=== PATIENT | female | born 1960 | race Caucasian/White ===

== ENCOUNTER 2016-11-11 06:02 | Day surgery (SDC) | payer OTHER ==
[~2016-11-11 06:02] MED LIST: Buffered Lidocaine 0.9% SYRIN* 5 ML/SYR SYRINGE INTRADERM ONE; Buffered Lidocaine 0.9% SYRIN* 5 ML/SYR SYRINGE ONE; Dexamethasone IV* 4 MG/ML 1 ML (4 MG) IV SLOW PU ONE; Dexamethasone IV* 4 MG/ML 1 ML (4 MG) ONE; Famotidine IV* 10 MG/ML 2 ML (20 mg) IV ONE; Famotidine IV* 10 MG/ML 2 ML (20 mg) ONE; ceFAZolin 2 GM PREMIX(*) 2 GM/50 ML BAG IVPB ONE
[2016-11-11] MEDS ORDERED: Bupivacaine 0.5% SDV PF* 30 ML VIAL ONE (07:07)
[2016-11-11] MEDS ORDERED: Midazolam* 1 MG/ML 5 ML VIAL (5 MG) ONE (07:14)
[2016-11-11] MEDS ORDERED: Lidocaine 2% PF* 10 ML AMP ONE ×2 (07:20→07:42)
[2016-11-11] MEDS ORDERED: Ondansetron INJ* 2 MG/ML VIAL ONE (07:25)
[2016-11-11] MEDS ORDERED: fentaNYL* 50 MCG/ML 2 ML VIAL (100 MCG VIAL) ONE ×2 (07:25→07:33)
[2016-11-11] MEDS ORDERED: Propofol* 10 MG/ML 20 ML BTL IV PUSH ONE (07:25)
[2016-11-11] MEDS ORDERED: Ketorolac INJ* 30 MG/ML 1 ML VIAL ONE (07:25)
[2016-11-11 09:18] VITALS: BP 105/66
--- NOTE | 2016-11-12 07:15 | OP ---
DATE OF OPERATION: 11/11/16 - [facility] DATE OF : 58 SURGEON: Collin Sagastume MD LANDSCAPING CREW LEADER: Supriya Gr PA-C ANESTHESIOLOGIST: Beny Rojas MD ANESTHESIA: MAC PRE-OP DIAGNOSIS: Arthritis, right first metatarsophalangeal joint. POST-OP DIAGNOSIS: Arthritis, right first metatarsophalangeal joint. OPERATIVE PROCEDURE: Right first MTP joint fusion. DESCRIPTION OF PROCEDURE: The patient was taken to the operating room where longitudinal incision was made over the dorsum of the first MTP joint. We made a medial and lateral flap to allow visualization of the joint itself. There was a very large dorsal osteophyte that was removed with a small osteotome. We repaired the joint for arthrodesis using a 2.5 mm power fariha. We then pinned the joint in neutral position obliquely with a 28 mm 4.0 cannulated screw and then fashioned dorsal rigid wide plate of the F3 plate with locking and nonlocking screws. X-rays intraoperatively showed satisfactory position. We irrigated thoroughly, closing with 3-0 Vicryl, 4-0 nylon and a compression dressing applied. [id number]/[facility] [place] #: [id number] MTDD
--- NOTE | 2016-11-12 07:54 | RAD ---
INDICATION: Right foot fusion first metatarsal-phalangeal joint. COMPARISON: Correlation is made with prior x-ray study of the right foot from December 28, 2015. TECHNIQUE: 2.4 seconds of intermittent fluoroscopic guidance were provided and 2 spot films of the right forefoot were obtained in the operating room. FINDINGS: The films demonstrate surgical fusion of the first metatarsal-phalangeal joint. There is a metallic plate present along the dorsal aspect of the distal first metatarsal proximal phalanx transfixed with multiple screws and a single additional surgical screw spanning the first metatarsal-phalangeal joint. The bones are in normal alignment. IMPRESSION: INTRAOPERATIVE CONTROL FILMS. CPT II Codes: 6045F
== END 2016-11-11 09:45 | disposition home or self-care (01) ==
LOC: OR 06:02
PROVIDERS: ATTEND Orthopaedic Surgery
PROC: 0SGM0ZZ (ICD-10-PCS; principal; 2016-11-11 07:30)
DX: M19.071 Primary osteoarthritis, right ankle and foot (principal); M25.774 Osteophyte, right foot; Z88.8 Allergy status to other drugs, medicaments and biological substances; F17.210 Nicotine dependence, cigarettes, uncomplicated; F32.9 Major depressive disorder, single episode, unspecified; F90.9 Attention-deficit hyperactivity disorder, unspecified type; M54.9 Dorsalgia, unspecified; G89.29 Other chronic pain
CPT/HCPCS: 76000; C1713; C1776; J0690; J1100; J1885; J2001; J2250; J2405; J2704; J3010

== ENCOUNTER → 2017-04-23 11:18 | Day surgery (SDC) | payer OTHER ==
[~2017-04-23 11:18] MED LIST changes: -Buffered Lidocaine 0.9% SYRIN* 5 ML/SYR SYRINGE ONE; +Ketorolac INJ* 30 MG/ML 1 ML VIAL ONE; +Lidocaine 2% PF * 5 ML VIAL ONE; +Midazolam* 1 MG/ML 2 ML VIAL (2 MG) ONE; +Ondansetron INJ* 2 MG/ML VIAL IV PRN; +Ondansetron INJ* 2 MG/ML VIAL ONE; +Propofol* 10 MG/ML 20 ML BTL IV PUSH ONE; -ceFAZolin 2 GM PREMIX(*) 2 GM/50 ML BAG IVPB ONE; +fentaNYL* 50 MCG/ML 5 ML VIAL (250 MCG VIAL) ONE; +oxyCODONE/Acetamin 5/325 MG* TAB PO PRN
[2017-04-23 15:35] VITALS: BP 126/76
--- NOTE | 2017-04-24 05:18 | PRO ---
DATE: 04/23/17 - ENDO REFERRING PHYSICIAN: Dr. Bradford Ramirez * PROCEDURE: Colonoscopy to cecum under general anesthesia. INDICATION: This 57-year-old woman comes in for screening colonoscopy. She has no symptom referable to the GI tract currently, though is somewhat constipated. That is baseline. She is on chronic pain medicines through the pain clinic. Given her history of psychiatric disease, substance abuse, current opioid use, _ ____ elected to do this procedure under anesthesia. Informed consent was obtained with an opportunity for questions, special concerns, and a travel discussion. ENDOSCOPIST: Dr. Alvarez. ANESTHESIA: General anesthesia per Dr. Rojas. FINDINGS: She is a slender, generally healthy-appearing, middle-aged woman in no distress. Her abdomen is symmetric, slender without focal finding. Rectal is normal. Initial views show a fair prep, fair amount of particulate debris though not all that much fluid. Views were ultimately judged as good to excellent. The adult scope encountered rather a floppy left colon and redundant hypermobile flexures throughout. The cecum, ileocecal valve, and the right colon directly were normal. Attempts to enter the ileocecal valve encountered high intrinsic sphincter tone and there was no pressing need to persevere, so the ileum was not seen. Upon slow withdrawal, excellent segmental views were normal. Final views in the rectum including retroflexion showed small internal hemorrhoids. IMPRESSION: Normal colonoscopy to cecum - 10-year interval. [id number]/[facility] #: [id number] MTDD
== END | disposition home or self-care (01) ==
LOC: OR 11:18 → ENDO 11:18
PROVIDERS: ATTEND Internal Medicine Gastroenterology
DX: Z12.11 Encounter for screening for malignant neoplasm of colon (principal); K63.89 Other specified diseases of intestine; K64.8 Other hemorrhoids; G89.29 Other chronic pain; M54.9 Dorsalgia, unspecified; F11.90 Opioid use, unspecified, uncomplicated; F32.9 Major depressive disorder, single episode, unspecified; F17.210 Nicotine dependence, cigarettes, uncomplicated; F90.9 Attention-deficit hyperactivity disorder, unspecified type; Z88.8 Allergy status to other drugs, medicaments and biological substances; Z91.040 Latex allergy status; Z79.899 Other long term (current) drug therapy; Z79.891 Long term (current) use of opiate analgesic
CPT/HCPCS: J1100; J1885; J2250; J2405; J2704; J3010

== ENCOUNTER 2019-02-16 14:30 | Emergency (ER) | payer OTHER ==
[2019-02-16 15:21] LABS: ABS Basophils 0.1 10^3/ul (0-0.2); ABS Eosinophils 0.1 10^3/ul (0-0.6); ABS Lymphocytes 3.9 10^3/ul (1.0-4.8); ABS Monocytes 0.6 10^3/ul (0-0.8); ABS Neutrophils 3.9 10^3/ul (1.5-7.7); Eosinophil % 1.5 %; Hematocrit 42 % (35-47); Hemoglobin 14.1 g/dL (12.0-16.0); Lymphocyte % 45.9 %; Mean Corpuscular HGB Conc 34 g/dL (31-36); Mean Corpuscular Hemoglobin 32 pg (27-31); Mean Corpuscular Volume 95 fL (80-97); Mean Platelet Volume 6.7 fL (7.4-10.4); Nucleated Red Blood Cells % 0.1; Platelet Count 309 10^3/uL (150-450); Red Blood Count 4.41 10^6 /uL (3.70-4.87); Red Cell Distribution Width 14 % (10-15); White Blood Count 8.6 10^3/uL (3.5-10.8)
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
[2019-02-16 15:48] LABS: ALT 19 U/L (7-52); AST 25 U/L (13-39); Albumin 3.9 g/dL (3.2-5.2); Albumin/Globulin Ratio 1.4 (1-3); Alkaline Phosphatase 58 U/L (34-104); Anion Gap 7 mmol/L (2-11); BUN/Creatinine Ratio 16.7 (8-20); Blood Urea Nitrogen 16 mg/dL (6-24); CO2 Carbon Dioxide 23 mmol/L (22-32); Calcium 8.2 mg/dL (8.6-10.3); Chloride 111 mmol/L (101-111); EGFR Non-African American 59.5 (>60); Globulin 2.7 g/dL (2-4); Glucose 91 mg/dL (70-100); Sodium 141 mmol/L (135-145); Total Protein 6.6 g/dL (6.4-8.9)
[2019-02-16 16:10] LABS: Urine Benzodiazepine Screen None Detected (None Detect); Urine Opiates Screen Presumptive Positive (None Detect)
[2019-02-16 16:12] LABS: Acetaminophen < 15 mcg/mL; Alcohol 242 mg/dL (<10)
[2019-02-16 18:38] VITALS: BP 124/64
== END 2019-02-16 16:37 | disposition home or self-care (01) ==
LOC: ED 14:30
DX: T51.0X1A Toxic effect of ethanol, accidental (unintentional), initial encounter (principal); Y92.9 Unspecified place or not applicable; J45.909 Unspecified asthma, uncomplicated; F32.9 Major depressive disorder, single episode, unspecified; F17.210 Nicotine dependence, cigarettes, uncomplicated; Z98.51 Tubal ligation status; Z79.899 Other long term (current) drug therapy; Z88.8 Allergy status to other drugs, medicaments and biological substances; Z91.040 Latex allergy status
CPT/HCPCS: 36415; 80053; 80307; 80320; 80329; 85025; 99283; G0480

== ENCOUNTER 2019-03-30 17:11 | Emergency (ER) | payer OTHER ==
--- NOTE | 2019-03-30 17:47 | ED ---
Medical Screening - HPI Summary HPI Summary: Patient with history of heroin use 2 today with subsequent overdose and administration of Narcan by EMS reportedly admitted to regular thoughts of SI and was brought to the ED for further evaluation. Patient states history of depression, chronic pain and chronic SI, but states she is [employer] Orthodox, and has 2 daughters and would never act on it. Patient chronic pain treated by pain management. Patient is currently a [employer] patient, States she started snorting heroin 2 weeks ago for chronic pain and recreational purposes. Denies intentional overdose today. Denies any other substance abuse today. Denies fever, cough, sore throat, CP, SOB, N/V/D, abdominal pain, change in urine, change in BM. Medical history is degenerative disc disease, chronic back pain, arthritis. - History of Current Complaint Chief Complaint: EDMentalHealth Stated Complaint: 941 PER [employer] ENFORC[employer] Time Seen by Provider: 03/30/19 17:36 PMH/Surg Hx/FS Hx/Imm Hx Endocrine/Hematology History: Denies: Hx Diabetes, Hx Thyroid Disease Cardiovascular History: Denies: Hx Hypertension, Hx Pacemaker/ICD Respiratory History: Reports: Hx Asthma - PRN INHALERS mild case Denies: Hx Chronic Obstructive Pulmonary Disease (COPD) GI History: Reports: Hx Irritable Bowel - NO PROBLEMS SINCE STARTED TAKING ALIGN Denies: Hx Ulcer History: Denies: Hx Dialysis, Hx Renal Disease Musculoskeletal History: Reports: Hx Arthritis, Hx Back Problems, Hx Bursitis - RIGHT SHOULDER - has improved some Sensory History: Reports: Hx Contacts or Glasses - glasses Denies: Hx Hearing Aid Opthamlomology History: Reports: Hx Contacts or Glasses - glasses Neurological History: Reports: Hx Migraine - NONE SINCE AGE 14, 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 Psychiatric History: Reports: Hx Depression - ON MEDICATION FOR, Hx Substance Abuse, Other Psychiatric Issues/Disorders - alcoholism Denies: Hx Eating Disorder, Hx Panic Disorder - Cancer History Hx Chemotherapy: No Hx Radiation Therapy: No - Surgical History Surgery Procedure, Year, and Place: 4 back surgeries - discectomy 1995, L4 fusion 1996, L 3,4,5 fusion 06/2010, C 6 fusion 09/2010; tonsillectomy; rt foot surgery; tubal ligation; ; Hx Anesthesia Reactions: No Infectious Disease History: No Infectious Disease History: Denies: Hx Hepatitis, Hx Human Immunodeficiency Virus (HIV), Traveled Outside the [place] in Last 30 Days - Family History Known Family History: Positive: Non-Contributory - Social History Alcohol Use: None Alcohol Amount: Recovering alcoholic Hx Substance Use: Yes Substance Use Type: Reports: Marijuana Substance Use Comment - Amount & Last Used: would like to be certified 12/2018 - will request 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 Triage Information Reviewed: Yes Vital Signs On Initial Exam: Initial Vitals Temp Pulse Resp BP Pulse Ox 97.8 F 73 18 121/72 98 03/30/19 17:14 03/30/19 17:14 03/30/19 17:14 03/30/19 17:14 03/30/19 17:14 Vital Signs Reviewed: Yes Appearance: Positive: Well-Appearing Skin: Positive: Warm Head/Face: Positive: Normal Head/Face Inspection Eyes: Positive: Normal ENT: Positive: Normal ENT inspection Neck: Positive: Supple Respiratory/Lung Sounds: Positive: Clear to Auscultation Cardiovascular: Positive: Normal Abdomen Description: Positive: Nontender Musculoskeletal: Positive: Normal Neurological: Positive: Normal Psychiatric: Positive: Normal AVPU Assessment: Alert - [place] Coma Scale Best Eye Response: 4 - Spontaneous Best Motor Response: 6 - Obeys Commands Best Verbal Response: 5 - Oriented Coma Scale Total: 15 Procedures - Sedation Patient Received Moderate/Deep Sedation with Procedure: No Diagnostics - Vital Signs Vital Signs Temp Pulse Resp BP Pulse Ox 03/30/19 17:14 97.8 F 73 18 121/72 98 - Laboratory Result Diagrams: 03/30/19 17:54 03/30/19 17:54 Lab Statement: Any lab studies that have been ordered have been reviewed, and results considered in the medical decision making process. Course/Dx - Course Course Of Treatment: Patient with history of heroin use 2 today with subsequent overdose and administration of Narcan by EMS reportedly admitted to regular thoughts of SI and was brought to the ED for further evaluation. Patient states history of depression, chronic pain and chronic SI, but states she is [employer] Orthodox, and has 2 daughters and would never act on it. Patient chronic pain treated by pain management. Patient is currently a [employer] patient, States she started snorting heroin 2 weeks ago for chronic pain and recreational purposes. Denies intentional overdose today. Denies any other substance abuse today. Denies fever, cough, sore throat, CP, SOB, N/V/D, abdominal pain, change in urine, change in BM. Medical history is degenerative disc disease, chronic back pain, arthritis. Vital signs within normal limits. Labs unremarkable. Mental health recommends discharge per Dr. Cary. - Diagnoses Provider Diagnoses: Depressive disorder Discharge ED - Sign-Out/Discharge Documenting (check all that apply): Patient Departure - Discharge Plan Condition: Stable Disposition: HOME Referrals: Garland Judd NP [Primary Care Provider] - - Billing Disposition and Condition Condition: STABLE Disposition: Home - Attestation Statements Provider Attestation: I was available for consult. This patient was seen by the CHARMAINE. The patient was not presented to, seen by, or examined by me. Nile Pike MD
[2019-03-30 18:00] LABS: Urine Appearance Cloudy; Urine Bilirubin Negative (Negative); Urine Blood Negative (Negative); Urine Color Yellow; Urine Glucose Negative (Negative); Urine Ketones Negative (Negative); Urine Nitrite Negative (Negative); Urine Protein Negative (Negative); Urine Specific Gravity 1.017 (1.010-1.030); Urine Urobilinogen Negative (Negative)
[2019-03-30 18:25] LABS: ABS Basophils 0.1 10^3/ul (0-0.2); ABS Eosinophils 0.3 10^3/ul (0-0.6); ABS Lymphocytes 3.8 10^3/ul (1.0-4.8); ABS Monocytes 0.7 10^3/ul (0-0.8); Eosinophil % 3.9 %; Hematocrit 41 % (35-47); Hemoglobin 13.7 g/dL (12.0-16.0); Lymphocyte % 48.1 %; Mean Corpuscular HGB Conc 33 g/dL (31-36); Mean Corpuscular Hemoglobin 32 pg (27-31); Mean Corpuscular Volume 96 fL (80-97); Mean Platelet Volume 7.3 fL (7.4-10.4); Platelet Count 260 10^3/uL (150-450); Red Blood Count 4.32 10^6 /uL (3.70-4.87); Red Cell Distribution Width 14 % (10-15); White Blood Count 7.9 10^3/uL (3.5-10.8)
[2019-03-30 18:36] LABS: Urine Benzodiazepine Screen None Detected (None Detect); Urine Opiates Screen Presumptive Positive (None Detect)
[2019-03-30 18:49] LABS: ALT 17 U/L (7-52); AST 20 U/L (13-39); Albumin 4.2 g/dL (3.2-5.2); Albumin/Globulin Ratio 1.7 (1-3); Alkaline Phosphatase 60 U/L (34-104); Anion Gap 7 mmol/L (2-11); Blood Urea Nitrogen 12 mg/dL (6-24); CO2 Carbon Dioxide 28 mmol/L (22-32); Calcium 9.1 mg/dL (8.6-10.3); Chloride 104 mmol/L (101-111); EGFR African American 49.4 (>60); EGFR Non-African American 40.8 (>60); Globulin 2.5 g/dL (2-4); Glucose 92 mg/dL (70-100); Potassium 3.6 mmol/L (3.5-5.0); Sodium 139 mmol/L (135-145); Total Protein 6.7 g/dL (6.4-8.9)
[2019-03-30 18:56] LABS: Acetaminophen < 15 mcg/mL; Alcohol < 10 mg/dL (<10); Salicylate < 2.50 mg/dL (<30)
[2019-03-30 19:08] LABS: TSH (Thyroid Stimulating Horm) 5.96 mcIU/mL (0.34-5.60)
[2019-03-30 22:00] VITALS: BP 92/43
== END 2019-03-30 22:00 | disposition home or self-care (01) ==
LOC: ED 17:11
DX: F32.9 Major depressive disorder, single episode, unspecified (principal); T40.1X1A Poisoning by heroin, accidental (unintentional), initial encounter; Y92.9 Unspecified place or not applicable; J45.909 Unspecified asthma, uncomplicated; G89.29 Other chronic pain; M54.9 Dorsalgia, unspecified; F17.210 Nicotine dependence, cigarettes, uncomplicated
CPT/HCPCS: 36415; 80053; 80307; 80320; 80329; 81003; 84443; 85025; 99284; G0480

== ENCOUNTER 2019-09-01 11:18 | Emergency (ER) | payer OTHER ==
--- OUTSIDE RECORDS SUMMARY | 2019-09-01 11:24 | XMS REPORT ---
:1960 Author Organization [facility] Care Team Providers Name Role Phone Autumn Matias Primary Care Physician Unavailable Allergies, Adverse Reactions, Alerts Allergy Code CodeSystem Reaction Severity Criticality Status Start Substance Date Moderate Medications Medication Medication Medication Start Stop Route Dose Status Fill Code CodeSystem Date Date Instructions bupropion HCl 726014 RxNorm 2019- oral 300 mg completed for 30 10-30- tablet day(s) extended release 24 hr Rexulti 7845644 RxNorm 2019- oral 0.5 mg 1 completed Take 1 tablet 01-27-02 tablet every every morning for morning 28 day(s) gabapentin 203529 RxNorm oral 300 mg active for 30 - capsule day(s) hydrocodone-mihaela 434689 RxNorm oral 10-325 active for 30 taminophen 5-06 mg day(s) tablet bupropion HCl 604914 RxNorm 2019- oral 300 mg active for 30 01-20 11-26 tablet day(s) extended release 24 hr aripiprazole 088992 RxNorm 2019- oral 5 mg 1 completed Take 1 tablet 11-30- tablet by mouth at at bedtime for bedtime 30 day(s) bupropion HCl 827280 RxNorm 2019- oral 150 mg completed for 30 08-04-07 tablet day(s) extended release 24 hr cyclobenzaprine 616648 RxNorm oral 10 mg active for 30 - tablet day(s) bupropion HCl 083432 RxNorm 2019- oral 150 mg completed for 30 10-30-28 tablet day(s) extended release 24 hr bupropion HCl 810906 RxNorm 2019- oral 300 mg completed for 30 08-04-07 tablet day(s) extended release 24 hr liothyronine 537311 RxNorm oral 25 mcg active for 30 3-12 tablet day(s) bupropion HCl 388639 RxNorm 2019- oral 150 mg active for 30 8-28 11-26 tablet day(s) extended release 24 hr aripiprazole 901885 RxNorm 2019- oral 2 mg completed for 30 3-04 07-08 tablet day(s) duloxetine 621893 RxNorm 2019- oral 60 mg completed for 30 - 08-04 capsule, day(s) delayed release( DR/EC) topiramate 778007 RxNorm oral 50 mg active for 30 3-05 tablet day(s) dextroamphetami 893380 RxNorm oral 10 mg active for 30 ne-amphetamine 5-20 tablet day(s) disulfiram 683525 RxNorm 2019- oral 250 mg active for 30 6-03 02-05 tablet day(s) duloxetine 002190 RxNorm oral 60 mg active for 30 5-06 capsule, day(s) delayed release( DR/EC) Rexulti 1464828 RxNorm 2018-05 oral 1 mg active for 30 0-02 tablet day(s) aripiprazole 085047 RxNorm 2019- oral 2 mg completed for 30 - 07-08 tablet day(s) Problems Problem Name Code CodeSystem Alternate Alternate Start End Status Narrative Code CodeSystem Date Date 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, recurrent, in partial remission Major 84357044 SNOMED-CT Active depressive 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, recurrent, in partial remission Alcohol 04346009 SNOMED-CT Active dependence, 02-15 in remission Tobacco use 10818086 SNOMED-CT Active - Major 07748362 SNOMED-CT Active depressive 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, recurrent, in partial remission Tobacco use 31588431 SNOMED-CT 2018- Active 08-19 Tobacco use 29918706 SNOMED-CT 2018- Active -27 Alcohol 46555171 SNOMED-CT Active dependence, 9- in remission Alcohol 14267468 SNOMED-CT 2019-0 Active dependence, 9-23 in remission Relevant diagnostic tests/laboratory data Narrative No Information Procedures Procedure Code CodeSystem Target Date of Status Service Device Device Device Name Site Procedure Delivery Code Name UID Location Office or [id number] SNOMED-CT () 2018-09-28 complete Mental other 7 d Health- outpatient [facility] visit for [address] established [id number] patient, [phone] which requires at least 2 of these 3 figueroa components: An expanded problem focused history; An expanded problem focused examination; Medical decision making of low Psychotherap 157820 SNOMED-CT () 2018-09-08 complete Mental y, 45 04 d Health- minutes with [facility] patient [address], [id number] [phone] Psychotherap [id number] SNOMED-CT () 2019-03-11 complete Mental y, 45 04 d Health- minutes with [facility] patient [address], [id number] [id number] Psychotherap [id number] SNOMED-CT () 2019-03-05 complete Mental y, 45 04 d Health- minutes with [facility] patient [address], [id number] [id number] SNOMED-CT () 2019-03-25 complete Mental d Health- [address], [id number] [phone] Office or [id number] SNOMED-CT () 2019-05-04 complete Mental other 7 d Health- outpatient [facility] visit for [address], established [id number] patient, [phone] which requires at least 2 of these 3 figueroa components: An expanded problem focused history; An expanded problem focused examination; Medical decision making of low SNOMED-CT () 2018-11-10 complete Mental d Health- [facility], [id number] [phone] Psychotherap [id number] SNOMED-CT () 2018-12-29 complete Mental y, 45 04 d Health- minutes with [facility] patient [address], [id number] [phone] Office or [id number] SNOMED-CT () 2019-02-24 complete Mental other 7 d Health- outpatient [facility] visit for [address], established [id number] patient, [phone] which requires at least 2 of these 3 figueroa components: An expanded problem focused history; An expanded problem focused examination; Medical decision making of [facility] Psychotherap [id number] SNOMED-CT () 2018-11-24 complete Mental y, 45 04 d Health- minutes with [facility] patient [address], [id number] [phone] Office or [id number] SNOMED-CT () 2019-06-21 complete Mental other 6 d Health- outpatient [facility] visit for [address], established [id number] patient, [phone] which requires at least 2 of these 3 figueroa components: A problem focused history; A problem focused examination; Straightforw jayleen medical decision making. Counselin Office or [id number] SNOMED-CT () 2019-03-25 complete Mental other 6 d Health- outpatient [facility] visit for [address], established [id number] patient, [phone] which requires at least 2 of these 3 figueroa components: A problem focused history; A problem focused examination; Straightforw jayleen medical decision making. Counselin Psychotherap [id number] SNOMED-CT () 2019-02-08 complete Mental y, 45 04 d Health- minutes with [facility] patient [address], [id number] [phone] Psychotherap [id number] SNOMED-CT () 2018-09-22 complete Mental y, 45 04 d Health- minutes with [facility] patient [address], [id number] [id number] Office or [id number] SNOMED-CT () 2019-01-27 complete Mental other 7 d Health- outpatient [facility] visit for [address], established [id number] patient, [phone] which requires at least 2 of these 3 figueroa components: An expanded problem focused history; An expanded problem focused examination; Medical decision making of [facility] Office or [id number] SNOMED-CT () 2018-11-30 complete Mental other 7 d Health- outpatient [facility] visit for [address], management [place], of [place], established [id number] patient, [phone] which requires at least 2 of these 3 figueroa components: An expanded problem focused history; An expanded problem focused examination; Medical decision making of low Psychotherap [id number] SNOMED-CT () 2019-02-25 complete Mental y, 45 04 d Health- minutes with [facility] patient [address], [id number] [id number] SNOMED-CT () 2019-03-31 complete Mental d Health- [address], [id number] [phone] SNOMED-CT () 2019-06-22 complete Mental d Health- [address], [phone] [phone] Encounters/Encounter Diagnoses Encounter Encounter Diagnosis Diagnosis Diagnosis Date of Service Name Code Code Name CodeSystem Diagnosis Delivery Location Non-Billable [id number] Major SNOMED-CT 2019-07-09 Behavioral depressive Health disorder, Clinic , , recurrent, in , partial remission Vital Signs No Information Social History Element Description Description Start End Code CodeSystem AdditionalInfo Date Date SexAssignedAtBirth Female 1959-05 F AdministrativeGender 06-05 Hospital Discharge Instructions Reason For Referral Medical Equipment FDA Assessments
--- OUTSIDE RECORDS SUMMARY | 2019-09-01 11:24 | XMS REPORT ---
:1960 Author Organization [facility] Care Team Providers Name Role Phone Autumn Matias Primary Care Physician Unavailable Allergies, Adverse Reactions, Alerts Allergy Code CodeSystem Reaction Severity Criticality Status Start Substance Date Moderate Medications Medication Medication Medication Start Stop Route Dose Status Fill Code CodeSystem Date Date Instructions liothyronine 547530 RxNorm 2019- oral 25 mcg completed for 30 3-05 04-31 tablet day(s) duloxetine 132672 RxNorm oral 60 mg active for 30 - capsule, day(s) delayed release( DR/EC) cyclobenzaprine 737063 RxNorm oral 10 mg active for 30 3-28 tablet day(s) duloxetine 153142 RxNorm 2019- oral 60 mg completed for 30 - 08-04 capsule, day(s) delayed release( DR/EC) bupropion HCl 768686 RxNorm 2019- oral 150 mg completed for 30 6- 08-28 tablet day(s) extended release 24 hr Rexulti 6852982 RxNorm 2019- oral 0.5 mg 1 completed Take 1 tablet 01-27- tablet every every morning for morning 28 day(s) gabapentin 294906 RxNorm 2019-0 oral 300 mg active for 30 6-04 capsule day(s) bupropion HCl 512246 RxNorm 2018- oral 300 mg active for 30 2-10 tablet day(s) extended release 24 hr disulfiram 958742 RxNorm 2019-0 oral 250 mg active for 30 6-03 tablet day(s) dextroamphetami 121897 RxNorm 2019-0 oral 10 mg active for 30 ne-amphetamine 5-20 tablet day(s) bupropion HCl 815509 RxNorm 2019- oral 300 mg completed for 30 -28 11-26 tablet day(s) extended release 24 hr bupropion HCl 883424 RxNorm 2019- oral 150 mg completed for 30 08-04- tablet day(s) extended release 24 hr bupropion HCl 611118 RxNorm 2019- oral 300 mg completed for 30 10-30- tablet day(s) extended release 24 hr bupropion HCl 492837 RxNorm 2018- oral 300 mg completed for 30 08-04- tablet day(s) extended release 24 hr aripiprazole 801386 RxNorm 2018- oral 2 mg completed for 30 09-28- tablet day(s) bupropion HCl 562025 RxNorm 2018-05 oral 150 mg active for 30 2-10 tablet day(s) extended release 24 hr bupropion HCl 611442 RxNorm 2018- oral 150 mg completed for 30 01-20 tablet day(s) extended release 24 hr aripiprazole 008639 RxNorm 2018- oral 2 mg completed for 30 07-27- tablet day(s) Rexulti 2083807 RxNorm 2018-05- oral 1 mg completed for 30 03-25 tablet day(s) topiramate 639797 RxNorm 2019- oral 50 mg completed for 30 07-28 tablet day(s) Rexulti 2575155 RxNorm 2018-05- oral 2 mg 1 completed Take 1 tablet 06-21 tablet once a day once a for 30 day(s) day aripiprazole 145432 RxNorm 2019- oral 5 mg 1 completed Take 1 tablet 11-30 tablet by mouth at at bedtime for bedtime 30 day(s) Rexulti 5262025 RxNorm oral 3 mg 1 active Take 1 tablet 1-27 tablet every every morning for morning 30 day(s) hydrocodone-mihaela 890074 RxNorm 2020- oral 10-325 completed for 30 taminophen 09-28- mg day(s) tablet Problems Problem Name Code CodeSystem Alternate Alternate Start End Status Narrative Code CodeSystem Date Date Alcohol 70906847 SNOMED-CT Active dependence, 02-15 in remission Tobacco use 31367925 SNOMED-CT Active 3-27 Tobacco use 04469472 SNOMED-CT Active 3-27 Major 93382737 SNOMED-CT Active depressive 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, recurrent, in partial remission Alcohol 92380257 SNOMED-CT Active dependence, 9 in remission Tobacco use 68053140 SNOMED-CT Active 3-27 Alcohol 67391082 SNOMED-CT Active dependence, 02-15 in remission Major 39244711 SNOMED-CT Active depressive 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, recurrent, in partial remission Major 02166107 SNOMED-CT Active depressive 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, recurrent, in partial remission Relevant diagnostic tests/laboratory data Narrative No Information Procedures Procedure Code CodeSystem Target Date of Status Service Device Device Device Name Site Procedure Delivery Code Name UID Location Psychotherap [id number] SNOMED-CT () 2018-09-08 complete Mental y, 45 04 d Health- minutes with [place] patient [address], [id number] [phone] Psychotherap [id number] SNOMED-CT () 2018-09-22 complete Mental y, 45 04 d Health- minutes with [facility] patient [address], [id number] [phone] Office or [id number] SNOMED-CT () 2018-09-28 complete Mental other 7 d Health- outpatient [facility] visit for [address] [id number] patient, [phone] which requires at least 2 of these 3 figueroa components: An expanded problem focused history; An expanded problem focused examination; Medical decision making of low SNOMED-CT () 2018-11-10 complete Mental d Health- [place] [address], [id number] [phone] Office or [id number] SNOMED-CT () 2018-11-30 complete Mental other 7 d Health- outpatient [facility] visit for [address] [id number] patient, [phone] which requires at least 2 of these 3 figueroa components: An expanded problem focused history; An expanded problem focused examination; Medical decision making of low Psychotherap 733581 SNOMED-CT () 2018-11-24 complete Mental y, 45 04 d Health- minutes with [facility] patient [address], [id number] [phone] Psychotherap [id number] SNOMED-CT () 2018-12-29 complete Mental y, 45 04 d Health- minutes with [facility] patient [address], [id number] [phone] Office or [id number] SNOMED-CT () 2019-01-27 complete Mental other 7 d Health- outpatient [facility] visit for [address], an [place], established [id number] patient, [phone] which requires at least 2 of these 3 figueroa components: An expanded problem focused history; An expanded problem focused examination; Medical decision making of low Psychotherap 639851 SNOMED-CT () 2019-02-08 complete Mental y, 45 04 d Health- minutes with [place] patient [address], [id number] [phone] Psychotherap [id number] SNOMED-CT () 2019-02-25 complete Mental y, 45 04 d Health- minutes with [facility] patient [address], [id number] [phone] Office or [id number] SNOMED-CT () 2019-02-24 complete Mental other 7 d Health- outpatient [facility] visit for [address], [facility], established [id number] patient, [phone] which requires at least 2 of these 3 figueroa components: An expanded problem focused history; An expanded problem focused examination; Medical decision making of low Psychotherap 720117 SNOMED-CT () 2019-03-05 complete Mental y, 45 04 d Health- minutes with [facility] patient [address], [id number] [phone] Psychotherap [id number] SNOMED-CT () 2019-03-11 complete Mental y, 45 04 d Health- minutes with [facility] patient [address], [id number] [id number] SNOMED-CT () 2019-03-31 complete Mental d Health- [address], [id number] [phone] Office or [id number] SNOMED-CT () 2019-03-25 complete Mental other 6 d Health- outpatient [facility] visit for [address], established [id number] patient, [phone] which requires at least 2 of these 3 figueroa components: A problem focused history; A problem focused examination; Straightforw jayleen medical decision making. Counselin SNOMED-CT () 2019-03-25 complete Mental d Health- [address], [id number] [phone] Office or [id number] SNOMED-CT () 2019-05-04 complete Mental other 7 d Health- outpatient [facility] visit for [address], established [id number] patient, [phone] which requires at least 2 of these 3 figueroa components: An expanded problem focused history; An expanded problem focused examination; Medical decision making of [facility] Office or [id number] SNOMED-CT () 2019-06-21 complete Mental other 6 d Health- outpatient [facility] visit for [address], established [id number] patient, [phone] which requires at least 2 of these 3 figueroa components: A problem focused history; A problem focused examination; Straightforw jayleen medical decision making. Counselin SNOMED-CT () 2019-06-22 complete Mental d Health- [address], [id number] [phone] Psychotherap [id number] SNOMED-CT () 2019-07-07 complete Mental y, 45 04 d Health- minutes with [place] patient [address], [id number] [phone] Psychotherap [id number] SNOMED-CT () 2019-07-26 complete Mental y, 45 04 d Health- minutes with [place] patient [address], [id number] [phone] Encounters/Encounter Diagnoses Encounter Encounter Diagnosis Diagnosis Diagnosis Date of Service Name Code Code Name CodeSystem Diagnosis Delivery Location PROS PROS [id number] Major SNOMED-CT 2019-08-05 Behavioral cumulative depressive Health disorder, Clinic , , recurrent, in , partial remission Vital Signs No Information Social History Element Description Description Start End Code CodeSystem AdditionalInfo Date Date SexAssignedAtBirth Female 1959-05 F AdministrativeGender 06-05 Hospital Discharge Instructions Reason For Referral Medical Equipment FDA Assessments
--- OUTSIDE RECORDS SUMMARY | 2019-09-01 11:24 | XMS REPORT ---
:1960 Author Organization [facility] Care Team Providers Name Role Phone Autumn Matias Primary Care Physician Unavailable Allergies, Adverse Reactions, Alerts Allergy Code CodeSystem Reaction Severity Criticality Status Start Substance Date Moderate Medications Medication Medication Medication Start Stop Route Dose Status Fill Code CodeSystem Date Date Instructions bupropion HCl 831716 RxNorm 2019- oral 300 mg completed for 30 10-30 08- tablet day(s) extended release 24 hr duloxetine 610896 RxNorm oral 60 mg active for 30 - capsule, day(s) delayed release( DR/EC) Rexulti 6791059 RxNorm 2018- oral 0.5 mg 1 completed Take 1 tablet 01-27- tablet every every morning for morning 28 day(s) aripiprazole 969202 RxNorm 2019- oral 2 mg completed for 30 07-27 07-08 tablet day(s) dextroamphetami 925136 RxNorm 2018-0 oral 10 mg active for 30 ne-amphetamine 5-20 tablet day(s) topiramate 602154 RxNorm oral 50 mg active for 30 3-05 tablet day(s) bupropion HCl 704128 RxNorm 2019- oral 150 mg active for 30 - 11-26 tablet day(s) extended release 24 hr liothyronine 969419 RxNorm 2019- oral 25 mcg active for 30 3-12 tablet day(s) Rexulti 8560383 RxNorm 2019- oral 1 mg active for 30 0-02 tablet day(s) bupropion HCl 476958 RxNorm 2019- oral 300 mg active for 30 - 11-26 tablet day(s) extended release 24 hr duloxetine 806509 RxNorm 2019- oral 60 mg completed for 30 5-06 08-04 capsule, day(s) delayed release( DR/EC) aripiprazole 475499 RxNorm 2019- oral 2 mg completed for 30 09-28-08 tablet day(s) gabapentin 418628 RxNorm oral 300 mg active for 30 - capsule day(s) aripiprazole 626845 RxNorm 2019- oral 5 mg 1 completed Take 1 tablet 11-30 tablet by mouth at at bedtime for bedtime 30 day(s) bupropion HCl 847616 RxNorm 2019- oral 150 mg completed for 30 10-30- tablet day(s) extended release 24 hr bupropion HCl 629110 RxNorm 2019- oral 300 mg completed for 30 08-04- tablet day(s) extended release 24 hr disulfiram 592488 RxNorm 2020- oral 250 mg active for 30 10-26-05 tablet day(s) hydrocodone-mihaela 344301 RxNorm oral 10-325 active for 30 taminophen 5-06 mg day(s) tablet bupropion HCl 648734 RxNorm 2019- oral 150 mg completed for 30 08-04- tablet day(s) extended release 24 hr cyclobenzaprine 328555 RxNorm oral 10 mg active for 30 - tablet day(s) Problems Problem Name Code CodeSystem Alternate Alternate Start End Status Narrative Code CodeSystem Date Date Tobacco use 12433888 SNOMED-CT Active 08-19 Alcohol 80614071 SNOMED-CT Active dependence, 02-15 in remission Major 29700237 SNOMED-CT Active depressive -22 disorder, recurrent, in partial remission Alcohol 17809755 SNOMED-CT 0 Active dependence, 9 in remission Major 43276214 SNOMED-CT Active depressive 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, recurrent, in partial remission Major 52903002 SNOMED-CT Active depressive 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, recurrent, in partial remission Tobacco use 64561872 SNOMED-CT 2019-0 Active 08-19 Alcohol 71505112 SNOMED-CT Active dependence, 02-15 in remission Tobacco use 79544189 SNOMED-CT 2018-0 Active 08-19 Relevant diagnostic tests/laboratory data Narrative No Information Procedures Procedure Code CodeSystem Target Date of Status Service Device Device Device Name Site Procedure Delivery Code Name UID Location Psychotherap [id number] SNOMED-CT () 2018-11-24 complete Mental y, 44 04 d Health- minutes with [facility] patient [address], [id number] [phone] Office [place] [id number] SNOMED-CT () 2019-06-21 complete Mental other 6 d Health- outpatient [facility] visit for [address], established [id number] patient, [phone] which requires at least 2 of these 3 figueroa components: A problem focused history; A problem focused examination; Straightforw jayleen medical decision making. Counselin Office or [id number] SNOMED-CT () 2019-03-25 complete Mental other 6 d Health- outpatient [facility] visit for [address], established [id number] patient, [phone] which requires at least 2 of these 3 figueroa components: A problem focused history; A problem focused examination; Straightforw jayleen medical decision making. Counselin Office or [id number] SNOMED-CT () 2019-02-24 complete Mental other 7 d Health- outpatient [facility] visit for [address], established [id number] patient, [phone] which requires at least 2 of these 3 figueroa components: An expanded problem focused history; An expanded problem focused examination; Medical decision making of low Psychotherap [id number] SNOMED-CT () 2019-03-05 complete Mental y, 45 04 d Health- minutes with [facility] patient [address], [id number] [phone] SNOMED-CT () 2019-03-25 complete Mental d Health- [facility] [address], [id number] [phone] Office or [id number] SNOMED-CT () 2019-05-04 complete Mental other 7 d Health- outpatient [facility] visit for [address], established [id number] patient, [phone] which requires at least 2 of these 3 figueroa components: An expanded problem focused history; An expanded problem focused examination; Medical decision making of low Psychotherap [id number] SNOMED-CT () 2019-03-11 complete Mental y, 45 04 d Health- minutes with [facility] patient [address], [id number] [phone] Psychotherap [id number] SNOMED-CT () 2018-12-29 complete Mental y, 45 04 d Health- minutes with [facility] patient [address], [id number] [phone] Psychotherap [id number] SNOMED-CT () 2019-07-07 complete Mental y, 45 04 d Health- minutes with [facility] patient [address], [id number] [phone] SNOMED-CT () 2018-11-10 complete Mental d Health- [address], [id number] [phone] Psychotherap [id number] SNOMED-CT () 2019-02-08 complete Mental y, 45 04 d Health- minutes with [facility] patient [address], [id number] [phone] Psychotherap [id number] SNOMED-CT () 2018-09-22 complete Mental y, 45 04 d Health- minutes with [facility] patient [address], [id number] [phone] Office or [id number] SNOMED-CT () 2019-01-27 complete Mental other 7 d Health- outpatient [facility] visit for [address], [facility] [id number] patient, [phone] which requires at least 2 of these 3 figueroa components: An expanded problem focused history; An expanded problem focused examination; Medical decision making of low Office or [id number] SNOMED-CT () 2018-11-30 complete Mental other 7 d Health- outpatient [facility] visit for [address], established [id number] patient, [phone] which requires at least 2 of these 3 figueroa components: An expanded problem focused history; An expanded problem focused examination; Medical decision making of low Office or [id number] SNOMED-CT () 2018-09-28 complete Mental other 7 d Health- outpatient [facility] visit for [address], [facility] [place], established [id number] patient, [phone] which requires at least 2 of these 3 figueroa components: An expanded problem focused history; An expanded problem focused examination; Medical decision making of low Psychotherap [id number] SNOMED-CT () 2018-09-08 complete Mental y, 45 04 d Health- minutes with [facility] patient [address], [id number] [phone] SNOMED-CT () 2019-03-31 complete Mental d Health- [address], [id number] [phone] SNOMED-CT () 2019-06-22 complete Mental d Health- [address], [id number] [phone] Psychotherap [id number] SNOMED-CT () 2019-02-25 complete Mental y, 45 04 d Health- minutes with [facility] patient [address], [id number] [phone] Encounters/Encounter Diagnoses Encounter Encounter Diagnosis Diagnosis Diagnosis Date of Service Name Code Code Name CodeSystem Diagnosis Delivery Location PROS PROS [id number] Major SNOMED-CT 2019-07-15 Behavioral cumulative depressive Health disorder, Clinic , , recurrent, in , partial remission Vital Signs No Information Social History Element Description Description Start End Code CodeSystem AdditionalInfo Date Date SexAssignedAtBirth Female 1959-05 F AdministrativeGender 06-05 Hospital Discharge Instructions Reason For Referral Medical Equipment FDA Assessments
--- NOTE | 2019-09-01 11:37 | ED ---
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 She describes tingling from her feet up to her head. Patient states she also has a headache, described as a band around her head "like a cap on." Patient notes her tremors are not new , stating "I always shake." Denies fever, chest pain, SOB, nausea, vomiting, abdominal pain, dysuria. Patient denies any stress prior to her symptoms today. However she reports she is now worried and feels hyper. Patient lives with her partner and feels safe. Denies SI thoughts/plan. Patient is a recovering alcoholic. She had breakfast this morning, a piece of toast with chess and coffee. Denies hx of AK, DM, HTN. Patient notes she took thyroid medications for a little while but they were discontinued. Patient admits to smoking a little bit of marijuana this morning, but reports she has been doing for 40 years. The only medication she took this morning was Topiramate. Patient states she drinks 4 cups of coffee every day. She denies taking any recreational drugs today. - History of Current Complaint Chief Complaint: EDNeurologicalDeficit Stated Complaint: GENERAL ILLNESS Time Seen by Provider: 09/01/19 11:28 Hx Obtained From: Patient Hx Last Menstrual Period: PERIMENOPAUSAL; OCTOBER 2011 Onset/Duration: Started hours ago - 1, Still Present Timing: Sudden Onset Onset Severity: Mild Current Severity: None Neurological Deficit Location: Generalized Pain Intensity: 0 Pain Scale Used: 0-10 Numeric Character: Numbness/Tingling - Tingling, Other: - difficulty ambulating, couldn' t find the words she wanted to say Aggravating: Nothing Alleviating: Nothing Associated Signs and Symptoms: Positive: Unsteady Gait, Headache. Negative: Nausea/Vomiting, Fever, Chest Pain, Shortness of Breath Related Hx: Alcohol/Drug Abuse - patient is a recovering alcoholic - Allergy/Home Medications Allergies/Adverse Reactions: Allergies Allergy/AdvReac Type Severity Reaction Status Date / Time pregabalin [From Lyrica] Allergy Severe Rash Verified 09/01/19 11:27 latex Allergy Mild Itching Verified 09/01/19 11:27 Home Medications: Home Medications Topiramate TAB(*) [Topamax 25 MG(*)] 25 mg PO DAILY 06/05/15 [History Confirmed 09/01/19] Albuterol HFA INHALER* [Ventolin HFA Inhaler*] 2 puff INH QID PRN 11/05/16 [ History Confirmed 09/01/19] DULoxetine DR CAP* [Cymbalta CAP*] 120 mg PO DAILY 08/01/17 [History Confirmed 09/01/19] Amphetamine MIXED SALT TAB* [Adderall TAB*] 10 mg PO .AFTERNOON & NIGHT [History Confirmed 09/01/19] Amphetamine MIXED SALT TAB* [Adderall TAB*] 20 mg PO QAM 02/16/19 [History Confirmed 09/01/19] Beclomethasone 40 MCG MDI(NF) [Qvar 40 MCG MDI(NF)] 2 puff INH BID 02/16/19 [ History Confirmed 09/01/19] Calcium Carbonate/Vitamin D3 [Calcium 600-Vit D3 800 Caplet] 1 each PO BID 02/16 [History Confirmed 09/01/19] L.acidoph,Paracasei, B.lactis [Probiotic] 1 each PO DAILY 02/16/19 [History Confirmed 09/01/19] BuPROPion XL* [Bupropion XL*] 300 mg PO QAM 03/30/19 [History Confirmed 09/01/19 ] Bupropion XL* [Wellbutrin XL *] 150 mg PO QAM 03/30/19 [History Confirmed ] LoraTADine TAB(NF) [Claritin 10 MG TAB(NF)] 10 mg PO DAILY 03/30/19 [History Confirmed 09/01/19] Cyclobenzaprine TAB* [Flexeril 10 MG TAB*] 10 mg PO TID PRN 09/01/19 [History Confirmed 09/01/19] Disulfiram TAB* [Antabuse 250 MG TAB*] 125 mg PO DAILY 09/01/19 [History Confirmed 09/01/19] Hydrocodone-Ibuprofen 7.5-200 1 tab PO DAILY PRN 09/01/19 [History Confirmed 01/12] Liothyronine TAB* [Cytomel TAB*] 25 mcg PO DAILY 09/01/19 [History Confirmed 01/12] Nicotine [Nicotrol NS 10 MG/ML NASAL SPRAY] 2 spray BOTH NARES .Q1H 09/01/19 [ History Confirmed 09/01/19] PMH/Surg Hx/FS Hx/Imm Hx Endocrine/Hematology History: Denies: Hx Diabetes, Hx Thyroid Disease Cardiovascular History: Denies: Hx Hypertension, Hx Pacemaker/ICD Respiratory History: Reports: Hx Asthma - PRN INHALERS mild case Denies: Hx Chronic Obstructive Pulmonary Disease (COPD) GI History: Reports: Hx Irritable Bowel - NO PROBLEMS SINCE STARTED TAKING ALIGN Denies: Hx Ulcer History: Denies: Hx Dialysis, Hx Renal Disease Musculoskeletal History: Reports: Hx Arthritis, Hx Back Problems, Hx Bursitis - RIGHT SHOULDER - has improved some Sensory History: Reports: Hx Contacts or Glasses - glasses Denies: Hx Hearing Aid Opthamlomology History: Reports: Hx Contacts or Glasses - glasses Neurological History: Reports: Hx Migraine - NONE SINCE AGE 14, 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 Psychiatric History: Reports: Hx Depression - ON MEDICATION FOR, Hx Substance Abuse, Other Psychiatric Issues/Disorders - alcoholism Denies: Hx Eating Disorder, Hx Panic Disorder, Hx of Violent Episodes Against Others - Cancer History Hx Chemotherapy: No Hx Radiation Therapy: No - Surgical History Surgery Procedure, Year, and Place: 4 back surgeries - discectomy 1995, L4 fusion 1996, L 3,4,5 fusion 06/2010, C 6 fusion 09/2010; tonsillectomy; rt foot surgery; tubal ligation; ; Hx Anesthesia Reactions: No Infectious Disease History: No Infectious Disease History: Denies: Hx Hepatitis, Hx Human Immunodeficiency Virus (HIV), Traveled Outside the [place] in Last 30 Days - Family History Known Family History: Negative: Cardiac Disease, Hypertension Family History: Father with alcoholism. 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 (-) Distressed Skin: Warm, Dry HENT: Normocephalic; Atraumatic Eyes: Conjunctiva normal Neck: Musculoskeletal ROM normal neck. (-) JVD, (-) Stridor, (-) Tracheal deviation Cardio: Rhythm regular, rate is tachycardic, Heart sounds normal; Intact distal pulses; The pedal pulses are 2+ and symmetric. Radial pulses are 2+ and symmetric. (-) Murmur Pulmonary/Chest wall: Effort normal. (-) Respiratory distress, (-) Wheezes, (-) Rales Abd: Soft. (-) Tenderness, (-) Distension, (-) Guarding, (-) Rebound Musculoskeletal: (-) Edema Lymph: (-) Cervical adenopathy Neuro: Alert, Oriented x3, Strength normal, Cranial nerves II-XII are grossly intact. (-) Dysmetria, (-) Nystagmus, (-) Ataxia by finger to nose testing, (-) Sensory deficit. Bilateral upper extremity resting tremor. No focal deficits. GCS is 15. NIH is 0. Psych: Appears anxious/restless Triage Information Reviewed: Yes Vital Signs On Initial Exam: Initial Vitals Temp Pulse Resp BP Pulse Ox 98.7 F 108 16 165/97 99 09/01/19 11:19 09/01/19 11:19 09/01/19 11:19 09/01/19 11:19 09/01/19 11:19 Vital Signs Reviewed: Yes - [place] Coma Scale Best Eye Response: 4 - Spontaneous Best Motor Response: 6 - Obeys Commands Best Verbal Response: 5 - Oriented Coma Scale Total: 15 Procedures - Sedation Patient Received Moderate/Deep Sedation with Procedure: No Diagnostics - Vital Signs Vital Signs Temp Pulse Resp BP Pulse Ox 09/01/19 11:19 98.7 F 108 16 165/97 99 - Laboratory Result Diagrams: 09/01/19 12:17 09/01/19 12:17 Lab Statement: Any lab studies that have been ordered have been reviewed, and results considered in the medical decision making process. - CT Brain CT CT Interpretation Completed By: Radiologist Summary of CT Findings: IMPRESSION: No intracranial mass or hemorrhage is noted. Dr. Glass has reviewed this report. - EKG 1245 Cardiac Rate: NL - at 85 bpm EKG Rhythm: Sinus Rhythm Summary of EKG Findings: EKG at 1245 shows sinus rhythm at a rate of 85 bpm. No ischemic changes. Dr. lGass has reviewed and interpreted this EKG. 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: Both Correctly Best Gaze (Only Horizontal Eye Movement): Normal Visual Field Testing: No Visual Loss Facial Paresis-Pt to Smile & Close Eyes or Grimace Symmetry: Normal/Symmetrical Motor Function - Right Arm: No Drift-Holds 10 Seconds Motor Function - Left Arm: No Drift-Holds 10 Seconds Motor Function - Right Leg: No Drift-Holds 10 Seconds Motor Function - Left Leg: No Drift-Holds 10 Seconds Limb Ataxia-Must be out of Proportion to Weakness Present: Absent Sensory (Use Pinprick to Test Arms/Legs/Trunk/Face): Normal Best Language (Describe Picture, Name Items): No Aphasia Dysarthria (Read Several Words): Normal Extinction and Inattention: No Abnormality Total Score: 0 Course/Dx - Course Assessment/Plan: Patient is a 59 y/o female presenting to [facility] c/o tingling, 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 She is a recovering alcoholic. Denies taking any recreational drugs today aside from Marijuana. On physical exam patient has bilateral upper extremity resting tremor. No focal deficits. GCS is 15. NIH is 0. Lab results are unremarkable except for creatinine of 1.17. EKG shows normal sinus rhythm at [address] reveals No intracranial mass or hemorrhage is noted. In the ED course the patient was given IV fluids, Lorazepam. Patient will be discharged home with follow up from her PCP in 1-3 days. - Diagnoses Provider Diagnoses: Paresthesias, Stress reaction Discharge ED - Sign-Out/Discharge Documenting (check all that apply): Patient Departure - Discharge home - Discharge Plan Condition: Stable Disposition: HOME Patient Education Materials: Stress (ED), Paresthesia (ED) Referrals: Garland Judd NP [Primary Care Provider] - Additional Instructions: RETURN TO THE EMERGENCY DEPARTMENT FOR CHANGING OR WORSENING SYMPTOMS. Follow up with your primary care provider in 1-3 days. - Billing Disposition and Condition Condition: STABLE Disposition: Home - Attestation Statements Document Initiated by Stephanie: Yes Documenting Scribe: Shasha Espinal Provider For Whom tSephanie is Documenting (Include Credential): Lauri Glass DO Scribe Attestation: IShasha, scribed for Lauri Glass DO on 09/01/19 at 1659. Scribe Documentation Reviewed: Yes Provider Attestation: The documentation as recorded by the yongibShasha veronica accurately reflects the service I personally performed and the decisions made by me, Lauri Glass DO Status of Scribe Document: Viewed
[2019-09-01] MEDS ORDERED: NS 0.9% 1000 ML** 1,000 ML IV ONE (11:51)
[2019-09-01] MEDS ORDERED: Lorazepam PYXIS KEY PRN (11:51)
[2019-09-01] MEDS ORDERED: LORazepam INJ* 2 MG/ML 1 ML VIAL IV PUSH ONE (11:51)
[2019-09-01] MEDS ORDERED: Lorazepam PYXIS KEY ONE (12:04)
[2019-09-01 12:26] LABS: ABS Eosinophils 0.3 10^3/ul (0-0.6); ABS Lymphocytes 2.4 10^3/ul (1.0-4.8); ABS Monocytes 0.8 10^3/ul (0-0.8); ABS Neutrophils 4.8 10^3/ul (1.5-7.7); Eosinophil % 3.5 %; Hematocrit 41 % (35-47); Hemoglobin 14.1 g/dL (12.0-16.0); Lymphocyte % 28.6 %; Mean Corpuscular HGB Conc 34 g/dL (31-36); Mean Corpuscular Hemoglobin 32 pg (27-31); Mean Corpuscular Volume 93 fL (80-97); Mean Platelet Volume 7.5 fL (7.4-10.4); Nucleated Red Blood Cells % 0.1; Platelet Count 257 10^3/uL (150-450); Red Blood Count 4.46 10^6 /uL (3.70-4.87); Red Cell Distribution Width 14 % (10-15); White Blood Count 8.3 10^3/uL (3.5-10.8)
[2019-09-01 12:53] LABS: ALT 14 U/L (7-52); AST 18 U/L (13-39); Albumin 3.9 g/dL (3.2-5.2); Albumin/Globulin Ratio 1.4 (1-3); Alcohol < 10 mg/dL (<10); Alkaline Phosphatase 56 U/L (34-104); Anion Gap 5 mmol/L (2-11); BUN/Creatinine Ratio 11.1 (8-20); Blood Urea Nitrogen 13 mg/dL (6-24); CO2 Carbon Dioxide 21 mmol/L (22-32); Calcium 9.3 mg/dL (8.6-10.3); Chloride 110 mmol/L (101-111); EGFR African American 57.1 (>60); EGFR Non-African American 47.2 (>60); Globulin 2.8 g/dL (2-4); Glucose 104 mg/dL (70-100); Potassium 4.1 mmol/L (3.5-5.0); Sodium 136 mmol/L (135-145); Total Protein 6.7 g/dL (6.4-8.9)
[2019-09-01 12:54] LABS: Troponin I 0.01 ng/mL (<0.03)
[2019-09-01 13:09] LABS: TSH (Thyroid Stimulating Horm) 4.26 mcIU/mL (0.34-5.60)
[2019-09-01 14:31] VITALS: BP 109/67
== END 2019-09-01 14:31 | disposition home or self-care (01) ==
LOC: ED 11:18
DX: R20.2 Paresthesia of skin (principal); F43.9 Reaction to severe stress, unspecified; J45.909 Unspecified asthma, uncomplicated; F32.9 Major depressive disorder, single episode, unspecified; Z87.891 Personal history of nicotine dependence; Z79.899 Other long term (current) drug therapy; Z88.8 Allergy status to other drugs, medicaments and biological substances; Z91.040 Latex allergy status
CPT/HCPCS: 36415; 70450; 80053; 80320; 83605; 84443; 84484; 85025; 93005; 96361; 96374; 99282; G0480; J2060